=== PATIENT | female | born 1975 | race Caucasian/White ===

== ENCOUNTER 2021-05-10 10:03 | Emergency (ER) | payer BC ==
[~2021-05-10] VITALS: Ht 162.6 cm; Wt 87.7 kg
[~2021-05-10 10:03] MED LIST: CYCL-394 PO; NAPR-56 PO; PHENTERAMINE
[2021-05-10 10:49] VITALS: BP 123/67
[2021-05-10] MEDS ORDERED: AZIT250T83 PO ×2 (13:16→13:31)
[2021-05-10] MEDS ORDERED: DEC4T PO ×2 (13:16→13:31)
== END 2021-05-10 14:14 | disposition home or self-care (01) ==
LOC: ER 10:04
DX: U07.1 COVID-19 (principal); J12.82 Pneumonia due to coronavirus disease 2019; R53.83 Other fatigue; R43.8 Other disturbances of smell and taste; R09.89 Other specified symptoms and signs involving the circulatory and respiratory systems; R50.9 Fever, unspecified; R11.10 Vomiting, unspecified; R06.02 Shortness of breath; G89.29 Other chronic pain; Z90.710 Acquired absence of both cervix and uterus; Z98.890 Other specified postprocedural states; Z79.2 Long term (current) use of antibiotics; Z79.899 Other long term (current) drug therapy
CPT/HCPCS: 71045; 99283